=== PATIENT | male | born 1940 | race Caucasian/White ===

== ENCOUNTER 2017-01-22 08:30 | Emergency (ER) | payer MEDICARE, BC ==
--- NOTE | 2017-01-22 09:44 | EDM.PDOC ---
ED HPI GENERAL MEDICAL PROBLEM - General Chief Complaint: Syncope Stated Complaint: MEDICAL VIA [facility] Time Seen by Provider: 01/22/17 09:46 Source of Information: Reports: Patient, Family History Limitations: Reports: No Limitations - History of Present Illness INITIAL COMMENTS - FREE TEXT/NARRATIVE: pt arrived with marked vertigo. He was vomiting. He was so off balance he ended up on the floor and did not injure himself. Onset: Today, Other ( sudden onset) Duration: Hour(s):, Getting Worse Location: Reports: Other (pt had a sudden onset of marked vertigo. ) Associated Symptoms: Reports: Nausea/Vomiting, Other ( vertigo. ) - Related Data Allergies Allergy/AdvReac Type Severity Reaction Status Date / Time morphine AdvReac Vomiting Verified 03/19/16 15:04 Home Meds: Home Meds Aspirin 81 mg PO BEDTIME 03/18/16 [History] Clopidogrel [Plavix] 1 tab PO BEDTIME 03/18/16 [History] Fish Oil/[place]-3 Fatty Acids [Fish Oil 1,000 MG] 1 tab PO BID 03/18/16 [History] Garlic 1 tab PO DAILY 03/18/16 [History] Metoprolol Tartrate [Lopressor] 12.5 mg PO BID 03/18/16 [History] Nitroglycerin [IJP: Nitroglycerin] 1 tab SL ASDIRECTED 03/18/16 [History] Pantoprazole [ProTONIX] 40 mg PO DAILY 03/18/16 [History] Simvastatin [Simvastatin] 40 mg PO BEDTIME 03/18/16 [History] Tamsulosin [Flomax] 0.08 mg PO DAILY 03/18/16 [History] Finasteride [Finasteride] 5 mg PO DAILY 01/22/17 [History] Past Medical History HEENT History: Reports: Cataract, Impaired Vision Cardiovascular History: Reports: CAD, High Cholesterol, Hypertension, [place] Gastrointestinal History: Reports: GERD Genitourinary History: Reports: BPH - Past Surgical History Cardiovascular Surgical History: Reports: Carotid Stents, Coronary Artery Bypass , Other (See Below) Male Surgical History: Reports: Other (See Below) Social & Family History - Family History Cardiac: Reports: CAD Oncologic: Reports: Breast, Prostate - Tobacco Use Smoking Status *Q: Former Smoker Used Tobacco, but Quit: No - Caffeine Use Caffeine Use: Reports: Coffee Other Caffeine Use: 1 cup a day - Recreational Drug Use Recreational Drug Use: No ED ROS GENERAL - Review of Systems Review Of Systems: See Below Constitutional: Reports: No Symptoms, Other (pt did get sweaty. ) HEENT: Reports: No Symptoms Respiratory: Reports: No Symptoms Cardiovascular: Reports: Other (pt has no pain. 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 He also has a history of a enlarged prostate. 5 days ago he saw urology in [place] . He was placed on proscar 1 tab daily and his flomax was increased to .8. He had a very sudden onset of vertigo this am and he was so off balance he fell to the floor. He did not injure himself. He began to vomit and was still vomiting on arrival. He has had one previous episode of vertigo that was not nearly as severe as this. His bp was low when the ambulance arrived. Exam Limited By: No Limitations General Appearance: Alert, Anxious, Mild Distress Ears: Normal TMs, Other (pt did lean to th left when he was gotten up. ) Nose: Normal Inspection Throat/Mouth: Normal Inspection Head Exam: Atraumatic Vertigo: worsens with head to R Neck: Normal Inspection, Other (no evidence of carotid bruits) Respiratory/Chest: No Respiratory Distress Cardiovascular: Regular Rate, Rhythm GI/Abdominal: Soft, Non-Tender (Male) Exam: Deferred Rectal (Males) Exam: Deferred Neurological: Alert, Oriented x 3 Back Exam: Normal Inspection Extremities: Normal Inspection, Other (no sign of weakness) Psychiatric: Normal Affect Course - Vital Signs Last Recorded V/S: Last Vital Signs Temp 36.1 C 01/22/17 08:48 Pulse 65 01/22/17 14:26 Resp 16 01/22/17 08:48 BP 146/86 H 01/22/17 14:26 Pulse Ox 97 01/22/17 08:48 Orthostatic Blood Pressure [ 123/56 Standing] Orthostatic Blood Pressure [ 114/76 Sitting] Orthostatic Blood Pressure [ 131/79 Supine] - Orders/Labs/Meds Orders: Active Orders 24 hr Category Date Time Status Cardiac Monitoring [RC] .As Directed Care 01/22/17 08:44 Active Orthostatic Vital Signs [RC] ASDIRECTED Care 01/22/17 08:50 Active Labs: Laboratory Tests 01/22/17 01/22/17 01/22/17 Range/Units 08:55 08:55 12:51 WBC 5.6 (4.5-11.0) K/uL RBC 4.93 (4.30-5.90) M/uL Hgb 15.6 H (12.0-15.0) g/dL Hct 44.9 (40.0-54.0) % MCV 91 (80-98) fL MCH 32 H (27-31) pg MCHC 35 (32-36) % Plt Count 169 (150-400) K/uL Neut % (Auto) 66 (36-66) % Lymph % (Auto) 23 L (24-44) % Casey % (Auto) 7 H (2-6) % Eos % (Auto) 3 (2-4) % Baso % (Auto) 0 (0-1) % Sodium 141 (140-148) mmol/L Potassium 4.2 (3.6-5.2) mmol/L Chloride 106 (100-108) mmol/L Carbon Dioxide 26 (21-32) mmol/L Anion Gap 8.8 (5.0-14.0) mmol/L BUN 16 (7-18) mg/dL Creatinine 1.0 (0.8-1.3) mg/dL Est Cr Clr Drug Dosing 62.84 mL/min Estimated GFR (MDRD) > 60 (>60) Glucose 154 H (74-106) mg/dL Calcium 8.5 (8.5-10.1) mg/dL Total Bilirubin 1.5 H (0.2-1.0) mg/dL AST 16 (15-37) U/L ALT 25 (12-78) U/L Alkaline Phosphatase 41 L (46-116) U/L Troponin I (0.000-0.056) ng/mL Total Protein 6.8 (6.4-8.2) g/dL Albumin 3.5 (3.4-5.0) g/dL Globulin 3.3 (2.3-3.5) g/dL Albumin/Globulin Ratio 1.1 L (1.2-2.2) Urine Color Yellow Urine Appearance Clear Urine pH 6.0 (4.5-8.0) Ur Specific [place] 1.015 (1.008-1.030) Urine Protein Negative (NEGATIVE) mg/dL Urine Glucose (UA) Normal (NEGATIVE) mg/dL Urine Ketones Negative (NEGATIVE) mg/dL Urine Occult Blood Negative (NEGATIVE) Urine Nitrite Negative (NEGAITVE) Urine Bilirubin Negative (NEGATIVE) Urine Urobilinogen 1 (NORMAL) mg/dL Ur Leukocyte Esterase Negative (NEGATIVE) Urine RBC Not seen (0-5) Urine WBC Not seen (0-5) Ur Epithelial Cells Rare Amorphous Sediment Not seen Urine Bacteria Not seen Urine Mucus Moderate // Range/Units 15:54 WBC (4.5-11.0) K/uL RBC (4.30-5.90) M/uL Hgb (12.0-15.0) g/dL Hct (40.0-54.0) % MCV (80-98) fL MCH (27-31) pg MCHC (32-36) % Plt Count (150-400) K/uL Neut % (Auto) (36-66) % Lymph % (Auto) (24-44) % Casey % (Auto) (2-6) % Eos % (Auto) (2-4) % Baso % (Auto) (0-1) % Sodium (140-148) mmol/L Potassium (3.6-5.2) mmol/L Chloride (100-108) mmol/L Carbon Dioxide (21-32) mmol/L Anion Gap (5.0-14.0) mmol/L BUN (7-18) mg/dL Creatinine (0.8-1.3) mg/dL Est Cr Clr Drug Dosing mL/min Estimated GFR (MDRD) (>60) Glucose (74-106) mg/dL Calcium (8.5-10.1) mg/dL Total Bilirubin (0.2-1.0) mg/dL AST (15-37) U/L ALT (12-78) U/L Alkaline Phosphatase (46-116) U/L Troponin I < 0.017 (0.000-0.056) ng/mL Total Protein (6.4-8.2) g/dL Albumin (3.4-5.0) g/dL Globulin (2.3-3.5) g/dL Albumin/Globulin Ratio (1.2-2.2) Urine Color Urine Appearance Urine pH (4.5-8.0) Ur Specific [place] (1.008-1.030) Urine Protein (NEGATIVE) mg/dL Urine Glucose (UA) (NEGATIVE) mg/dL Urine Ketones (NEGATIVE) mg/dL Urine Occult Blood (NEGATIVE) Urine Nitrite (NEGAITVE) Urine Bilirubin (NEGATIVE) Urine Urobilinogen (NORMAL) mg/dL Ur Leukocyte Esterase (NEGATIVE) Urine RBC (0-5) Urine WBC (0-5) Ur Epithelial Cells Amorphous Sediment Urine Bacteria Urine Mucus Meds: Medications Discontinued Medications Generic Name Dose Route Start Last Admin Trade Name Freq PRN Reason Stop Dose Admin Sodium Chloride 1,000 mls @ 300 mls/hr 01/22/17 09:45 01/22/17 14:27 Normal Saline IV 300 mls/hr ASDIRECTED GABBY Administration Sodium Chloride 1,000 mls @ 300 mls/hr 01/22/17 14:15 Normal Saline IV ASDIRECTED GABBY Meclizine HCl 25 mg 01/22/17 09:45 01/22/17 10:27 Antivert PO 01/22/17 09:46 25 mg ONETIME ONE Administration Meclizine HCl 25 mg 01/22/17 12:30 01/22/17 12:39 Antivert PO 01/22/17 12:31 25 mg ONETIME ONE Administration Metoprolol Tartrate 12.5 mg 01/22/17 14:30 01/22/17 14:26 Lopressor PO 01/22/17 14:31 12.5 mg ONETIME ONE Administration Ondansetron HCl 4 mg 01/22/17 09:45 01/22/17 10:27 Zofran IVPUSH 01/22/17 09:46 4 mg ONETIME ONE Administration Pantoprazole Sodium 40 mg 01/22/17 14:30 01/22/17 14:29 Protonix PO 01/22/17 14:31 Not Given ONETIME ONE - Re-Assessments/Exams Free Text/Narrative Re-Assessment/Exam: 01/22/17 18:17 pt was found to have normal lab work.He had a normal ekg. His cat scan of the head was neg for acute findings. He was given fluids, 2 does of 25 mg antiver 2 -3 hours apart. He wa given zoforan 4 mg iv. he did not do further vomiting. He slowly did improve and walked with a walker well.he does have a walker at home. Departure - Departure Time of Disposition: 17:31 Disposition: Home, Self-Care 01 Condition: Fair Clinical Impression: Vertigo, Inner ear dysfunction, Hypotension - Discharge Information Instructions: Vertigo, [id number], Hypotension, [id number] Referrals: PCP,None [Primary Care Provider] - Forms: ED Department Discharge Care Plan Goals: encourage fluids, antivert 25 mg tid for vertigo, zoforan 4mg subling q6h prn for nausea, use a walker when ambulating at home, hold flomax--extra dose-- use .4 mg. finasteride will be held. In the next week may try to add the finastride can be added back but leave the flomax at .4. - My Orders Last 24 Hours: My Active Orders 01/22/17 08:44 Cardiac Monitoring [RC] .As Directed 01/22/17 08:50 Orthostatic Vital Signs [RC] ASDIRECTED - Assessment/Plan Last 24 Hours: My Active Orders 01/22/17 08:44 Cardiac Monitoring [RC] .As Directed 01/22/17 08:50 Orthostatic Vital Signs [RC] ASDIRECTED
[2017-01-22] MEDS ORDERED: Ondansetron 4 MG/2 ML SDV IVPUSH ONE (09:45)
[2017-01-22] MEDS ORDERED: Meclizine 25 MG Tab PO ONE ×2 (09:45→12:30)
[2017-01-22] MEDS: Sodium Chloride 0.9% 1,000 ML IV SCH ×2 (10:27→14:27)
--- NOTE | 2017-01-22 11:55 | CT ---
CT head without contrast. Total DLP 804. Indication: Vertigo. Findings: No mass effect or midline shift. No hemorrhage. No subacute territorial infarct. Vascular c alcifications. Mastoid air cells are clear. Calvarium intact. Minimal ethmoidal mucosal thickening an d right frontal sinus mucosal thickening. Impression: 1. No acute intracranial process by CT.
[2017-01-22] MEDS ORDERED: Metoprolol Succinate 25 MG Tab.ER PO ONE (14:11)
[2017-01-22] MEDS ORDERED: Sodium Chloride 0.9% 1,000 ML IV SCH (14:15)
[2017-01-22] MEDS: Pantoprazole 40 MG Tab.CR PO ONE ×2 (14:26→14:29)
[2017-01-22 14:27] VITALS: BP 146/86
[2017-01-22] MEDS ORDERED: Metoprolol Tartrate 25 MG Tab PO ONE (14:30)
== END 2017-01-22 18:19 | disposition home or self-care (01) ==
LOC: JP.ED 08:30
DX: R42 Dizziness and giddiness (principal); H83.2X9 Labyrinthine dysfunction, unspecified ear; I95.9 Hypotension, unspecified; I25.2 Old myocardial infarction; I10 Essential (primary) hypertension; I25.10 Atherosclerotic heart disease of native coronary artery without angina pectoris; E78.00 Pure hypercholesterolemia, unspecified; K21.9 Gastro-esophageal reflux disease without esophagitis; F03.90 Unspecified dementia, unspecified severity, without behavioral disturbance, psychotic disturbance, mood disturbance, and anxiety; Z95.1 Presence of aortocoronary bypass graft; Z79.82 Long term (current) use of aspirin; Z79.02 Long term (current) use of antithrombotics/antiplatelets; Z79.899 Other long term (current) drug therapy; Z88.5 Allergy status to narcotic agent
CPT/HCPCS: 36415; 70450; 80053; 81001; 84484; 85025; 96361; 96374; 99284; A9270; J2405; J7040

== ENCOUNTER 2019-07-20 22:09 | Emergency (ER) | payer MEDICARE, BC ==
[2019-07-20 22:24] VITALS: BP 140/66; PULSE 56
[2019-07-20] MEDS ORDERED: Aspirin 81 MG Tab.Chew PO ONE (22:43)
--- NOTE | 2019-07-20 22:46 | EDM.PDOC ---
ED HPI GENERAL MEDICAL PROBLEM - General Chief Complaint: Chest Pain Stated Complaint: CHEST PAIN Time Seen by Provider: 07/20/19 22:40 Source of Information: Reports: Patient, Family, RN Notes Reviewed History Limitations: Reports: No Limitations - History of Present Illness INITIAL COMMENTS - FREE TEXT/NARRATIVE: 78-year-old gentleman presents emergency department a complaint of chest pain, he has a known history of coronary artery disease last intervention was 3 years ago with stenting process. States he was at home today sitting in the chair sudden onset of chest pain was diaphoretic no shortness of breath no nausea pain was completely resolved with 2 nitro at this time he is chest pain-free - Related Data Allergies Allergy/AdvReac Type Severity Reaction Status Date / Time morphine AdvReac Vomiting Verified 03/19/16 15:04 Home Meds: Home Meds Aspirin 81 mg PO BEDTIME 03/18/16 [History] Clopidogrel [Plavix] 1 tab PO BEDTIME 03/18/16 [History] Fish Oil/[place]-3 Fatty Acids [Fish Oil 1,000 MG] 1 tab PO BID 03/18/16 [History] Garlic 1 tab PO DAILY 03/18/16 [History] Metoprolol Tartrate [Lopressor] 12.5 mg PO BID 03/18/16 [History] Nitroglycerin [IJP: Nitroglycerin] 1 tab SL ASDIRECTED 03/18/16 [History] Pantoprazole [ProTONIX] 40 mg PO DAILY 03/18/16 [History] Simvastatin 40 mg PO BEDTIME 03/18/16 [History] Tamsulosin [Flomax] 0.08 mg PO DAILY 03/18/16 [History] Finasteride 5 mg PO DAILY 01/22/17 [History] Past Medical History HEENT History: Reports: Cataract, Impaired Vision Cardiovascular History: Reports: CAD, High Cholesterol, Hypertension, CT Gastrointestinal History: Reports: GERD Genitourinary History: Reports: BPH - Infectious Disease History Infectious Disease History: Reports: Chicken Pox, Measles, Mumps - Past Surgical History Cardiovascular Surgical History: Reports: Carotid Stents, Coronary Artery Bypass , Other (See Below) Male Surgical History: Reports: Other (See Below) Social & Family History - Family History Cardiac: Reports: CAD Oncologic: Reports: Breast, Prostate - Tobacco Use Smoking Status *Q: Former Smoker Used Tobacco, but Quit: Yes Month/Year Tobacco Last Used: many years ago - Caffeine Use Caffeine Use: Reports: Coffee Other Caffeine Use: 1 cup a day - Recreational Drug Use Recreational Drug Use: No ED ROS GENERAL - Review of Systems Review Of Systems: See Below Constitutional: Reports: Diaphoresis HEENT: Reports: No Symptoms Respiratory: Denies: Shortness of Breath Cardiovascular: Reports: Chest Pain GI/Abdominal: Reports: No Symptoms ED EXAM, GENERAL - Physical Exam Exam: See Below Exam Limited By: No Limitations General Appearance: Alert, WD/WN, No Apparent Distress Respiratory/Chest: No Respiratory Distress, Lungs Clear, Normal Breath Sounds, No Accessory Muscle Use, Chest Non-Tender Cardiovascular: Regular Rate, Rhythm, No Murmur GI/Abdominal: Soft, Non-Tender Course - Vital Signs Last Recorded V/S: Last Vital Signs Temp 96.2 F L 07/20/19 22:23 Pulse 56 L 07/20/19 22:23 Resp 20 07/20/19 22:23 BP 140/66 07/20/19 22:23 Pulse Ox 97 07/20/19 22:23 - Orders/Labs/Meds Orders: Active Orders 24 hr Category Date Time Status Cardiac Monitoring [RC] .As Directed Care 07/20/19 22:43 Active EKG Documentation Completion [RC] ASDIRECTED Care 07/20/19 22:44 Active Chest 2V [CR] Stat Exams 07/20/19 22:44 Taken EKG 12 Lead [EK] Stat Ther 07/20/19 22:44 Ordered Labs: Laboratory Tests 07/20/19 07/20/19 07/21/19 Range/Units 23:00 23:00 01:30 WBC 5.9 (4.5-11.0) K/uL RBC 4.67 (4.30-5.90) M/uL Hgb 14.3 (12.0-15.0) g/dL Hct 44.3 (40.0-54.0) % MCV 95 (80-98) fL MCH 31 (27-31) pg MCHC 32 (32-36) % Plt Count 193 (150-400) K/uL Neut % (Auto) 61 (36-66) % Lymph % (Auto) 26 (24-44) % [place] % (Auto) 10 H (2-6) % Eos % (Auto) 3 (2-4) % Baso % (Auto) 0 (0-1) % Sodium 145 (140-148) mmol/L Potassium 4.1 (3.6-5.2) mmol/L Chloride 107 (100-108) mmol/L Carbon Dioxide 30 (21-32) mmol/L Anion Gap 8.4 (5.0-14.0) mmol/L BUN 19 H (7-18) mg/dL Creatinine 1.0 (0.8-1.3) mg/dL Est Cr Clr Drug Dosing 60.88 mL/min Estimated GFR (MDRD) > 60 (>60) Glucose 103 (74-106) mg/dL Calcium 8.6 (8.5-10.1) mg/dL Total Bilirubin 1.4 H (0.2-1.0) mg/dL AST 49 H D (15-37) U/L ALT 57 D (12-78) U/L Alkaline Phosphatase 51 (46-116) U/L Troponin I < 0.017 < 0.017 (0.000-0.056) ng/mL Total Protein 6.7 (6.4-8.2) g/dL Albumin 3.7 (3.4-5.0) g/dL Globulin 3.0 (2.3-3.5) g/dL Albumin/Globulin Ratio 1.2 (1.2-2.2) Meds: Medications Discontinued Medications Generic Name Dose Route Start Last Admin Trade Name Prashanthq PRN Reason Stop Dose Admin Aspirin 324 mg 07/20/19 22:43 07/20/19 23:00 Aspirin PO 07/20/19 22:44 324 mg ONETIME ONE Administration - Re-Assessments/Exams Free Text/Narrative Re-Assessment/Exam: 07/21/19 02:06 Heart score is 4 Departure - Departure Time of Disposition: 02:08 Disposition: Home, Self-Care 01 Condition: Fair Clinical Impression: Atypical chest pain Instructions: Nonspecific Chest Pain Referrals: Henrik George MD [Primary Care Provider] - Forms: ED Department Discharge Additional Instructions: Continue with your regular medications, please follow-up with your primary care in the next 3 to 5 days for reevaluation, call or return to the emergency department worsening of symptoms Sepsis Event Note - Focused Exam Vital Signs: Vital Signs Temp Pulse Resp BP Pulse Ox 07/20/19 22:23 96.2 F L 56 L 20 140/66 97 Date Exam was Performed: 07/21/19 Time Exam was Performed: 02:06 - My Orders Last 24 Hours: My Active Orders 07/20/19 22:43 Cardiac Monitoring [RC] .As Directed 07/20/19 22:44 EKG Documentation Completion [RC] ASDIRECTED Chest 2V [CR] Stat EKG 12 Lead [EK] Stat - Assessment/Plan Last 24 Hours: My Active Orders 07/20/19 22:43 Cardiac Monitoring [RC] .As Directed 07/20/19 22:44 EKG Documentation Completion [RC] ASDIRECTED Chest 2V [CR] Stat EKG 12 Lead [EK] Stat Plan: Assessment Acuity = acute Site and laterality = atypical chest pain Etiology = unknown Manifestations = none Location of injury = Home Lab values = CBC, CMP unremarkable troponin is negative x2 chest x-ray shows no acute process official read radiologist pending EKG demonstrates sinus rhythm with no signs of ST elevation or depression Plan He remained chest pain-free while in the ED for observation no arrhythmias were noted no etiology to his chest pain I have him follow-up with his primary care in the next 3 to 5 days for reevaluation consider stress testing, last angiogram was 3 years ago This note was dictated using [employer] voice recognition software please call with any questions on syntax or grammar.
--- NOTE | 2019-07-21 08:45 | CR ---
CHEST: 2 view CLINICAL HISTORY:Chest pain COMPARISON:None FINDINGS: The heart size, pulmonary vascularity and hilar structures are normal. No infiltrate effusion or pneumothorax is seen. There has been previous sternotomy. IMPRESSION: No acute cardiopulmonary process.
== END 2019-07-21 02:17 | disposition home or self-care (01) ==
LOC: JP.ED 22:09
DX: R07.89 Other chest pain (principal); I10 Essential (primary) hypertension; I25.2 Old myocardial infarction; Z88.5 Allergy status to narcotic agent; Z79.82 Long term (current) use of aspirin; Z79.899 Other long term (current) drug therapy; Z87.891 Personal history of nicotine dependence
CPT/HCPCS: 36415; 71046; 80053; 84484; 85025; 93005; 93010; 99284; 99285; A9270

== ENCOUNTER 2020-11-16 10:21 | Emergency (ER) | payer MEDICARE, BC ==
[2020-11-16] MEDS ORDERED: Bacitracin Oint 1 GM U/D Packet TOP ONE (10:39)
[2020-11-16 10:42] VITALS: BP 124/64; PULSE 63
--- NOTE | 2020-11-16 11:06 | EDM.PDOC ---
ED HPI GENERAL MEDICAL PROBLEM - General Chief Complaint: Skin Complaint Stated Complaint: CUT LEG WITH KNIFE Time Seen by Provider: 11/16/20 10:40 Source of Information: Reports: Patient, Family, Old Records, RN History Limitations: Reports: No Limitations - History of Present Illness INITIAL COMMENTS - FREE TEXT/NARRATIVE: 79 yo male here after accidently slipping with a razor knife this morning and cut just above his L knee. Here with his for eval. He is UTD on tetanus. 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[employer]ER: Reports: Other (see below) (none) - Related Data Allergies Allergy/AdvReac Type Severity Reaction Status Date / Time morphine AdvReac Vomiting Verified 03/19/16 15:04 Home Meds: Home Meds Aspirin 81 mg PO BEDTIME 03/18/16 [History] Clopidogrel [Plavix] 1 tab PO BEDTIME 03/18/16 [History] Fish Oil/[place]-3 Fatty Acids [Fish Oil 1,000 MG] 1 tab PO BID 03/18/16 [History] Garlic 1 tab PO DAILY 03/18/16 [History] Nitroglycerin [IJP: Nitroglycerin] 1 tab SL ASDIRECTED 03/18/16 [History] Simvastatin 40 mg PO BEDTIME 03/18/16 [History] Carbidopa/Levodopa/Entacapone [Carbidopa-Levodopa 100 mg-Enta] 1 tab PO TID 11/16/20 [History] Donepezil HCl [Aricept] 15 mg PO DAILY 11/16/20 [History] Memantine [Namenda] 10 mg PO BID 11/16/20 [History] Past Medical History HEENT History: Reports: Cataract, Impaired Vision Cardiovascular History: Reports: CAD, High Cholesterol, Hypertension, CT Gastrointestinal History: Reports: GERD Genitourinary History: Reports: BPH - Infectious Disease History Infectious Disease History: Reports: Chicken Pox, Measles, Mumps - Past Surgical History Cardiovascular Surgical History: Reports: Carotid Stents, Coronary Artery Bypass, Other (See Below) Other Cardiovascular Surgeries/Procedures: cabg x2 Male Surgical History: Reports: Other (See Below) Other Male Surgeries/Procedures: biopsy of prostate Social & Family History - Family History Cardiac: Reports: CAD Oncologic: Reports: Breast, Prostate - Tobacco Use Tobacco Use Status *Q: Never Tobacco User - Caffeine Use Caffeine Use: Reports: Coffee Other Caffeine Use: 1 cup a day - Recreational Drug Use Recreational Drug Use: No ED ROS GENERAL - Review of Systems Review Of Systems: See Below Constitutional: Reports: No Symptoms HEENT: Reports: No Symptoms Respiratory: Reports: No Symptoms Cardiovascular: Reports: No Symptoms GI/Abdominal: Reports: No Symptoms Skin: Reports: Wound (laceration just proximal to the L knee anteriorly) Neurological: Reports: No Symptoms. Denies: Numbness, Difficulty Walking, Weakness, Gait Disturbance Psychiatric: Reports: No Symptoms ED EXAM, SKIN/RASH Exam: See Below Exam Limited By: No Limitations General Appearance: Alert, WD/WN, No Apparent Distress Eye Exam: Bilateral Eye: Normal Inspection Ears: Normal External Exam, Normal Canal, Hearing Grossly Normal Nose: Normal Inspection, No Blood Throat/Mouth: Normal Lips, Normal Oropharynx, Normal Voice, No Airway Compromise Head: Atraumatic, Normocephalic Respiratory/Chest: No Respiratory Distress Cardiovascular: Regular Rate, Rhythm Extremities: Normal Inspection, Non-Tender, No Pedal Edema. No: Pedal Edema Neurological: Alert, Oriented, CN II-XII Intact, Normal Cognition, No Motor/Sensory Deficits Skin: Warm, Dry, Normal Color, No Rash, Wound/Incision (horizontal linear lac just above the L knee anteriorly.). No: Intact Location, Skin: Lower Extremity, Left Characteristics: Linear Associated features: No: Warmth, Tenderness, Induration, Lymphangitis ED SKIN PROCEDURES - Laceration/Wound Repair Left Anterior Distal Thigh Appearance: Subcutaneous, Linear, Clean Distal NVT: Neuro & Vascular Intact, No Tendon Injury Anesthetic Type: Local Local Anesthesia - Lidocaine (Xylocaine): 1% with EPI Local Anesthetic Volume: Other (8 ml) Skin Prep: Saline Saline Irrigation (cc's): 60 Exploration/Debridement/Repair: Wound Explored, In a Bloodless Field, Explored to Base Closed with: Sutures Lac/Wound length In cm: 4 Suture Size: 5-0 # of Sutures: 6 Suture Type: Nylon, Interrupted, Mattress Drain Placement: No Sterile Dressing Applied: Nurse Tetanus Status Addressed: Yes Complications: No Course - Vital Signs Last Recorded V/S: Last Vital Signs Temp 36.6 C 06/23/21 10:41 Pulse 63 11/16/20 10:41 Resp 16 11/16/20 10:41 BP 124/64 11/16/20 10:41 Pulse Ox 97 11/16/20 10:41 - Orders/Labs/Meds Meds: Medications Discontinued Medications Generic Name Dose Route Start Last Admin Trade Name Constantino PRN Reason Stop Dose Admin Bacitracin 1 dose 11/16/20 10:39 Bacitracin Oint 1 Gm U/D Packet TOP 11/16/20 10:40 ONETIME ONE Departure - Departure Time of Disposition: 11:15 Disposition: Home, Self-Care 01 Condition: Good Clinical Impression: Laceration of left leg Qualifiers: Encounter type: initial encounter Qualified Code(s): S81.812A - Laceration without foreign body, left lower leg, initial encounter - Discharge Information *PRESCRIPTION DRUG MONITORING PROGRAM REVIEWED*: Not Applicable *COPY OF PRESCRIPTION DRUG MONITORING REPORT IN PATIENT NOAH: Not Applicable Instructions: Laceration Care, Adult, [id number] Referrals: PCP,None [Primary Care Provider] - Forms: ED Department Discharge Additional Instructions: Clean wound twice daily with soap and water. Dry. Apply antibiotic ointment and a new dressing. Stitches out in 9-10 days. Recheck for signs of infection. Acetaminophen as needed for pain relief. Sepsis Event Note (ED) - Evaluation Sepsis Screening Result: No Definite Risk - Focused Exam Vital Signs: Vital Signs Temp Pulse Resp BP Pulse Ox 11/16/20 10:41 36.6 C 63 16 124/64 97
== END 2020-11-16 11:19 | disposition home or self-care (01) ==
LOC: JP.ED 10:21
DX: S71.112A Laceration without foreign body, left thigh, initial encounter (principal); I25.10 Atherosclerotic heart disease of native coronary artery without angina pectoris; E78.00 Pure hypercholesterolemia, unspecified; I10 Essential (primary) hypertension; I25.2 Old myocardial infarction; Z79.02 Long term (current) use of antithrombotics/antiplatelets; Z79.899 Other long term (current) drug therapy; Z88.5 Allergy status to narcotic agent; Z79.82 Long term (current) use of aspirin; W26.0XXA Contact with knife, initial encounter
CPT/HCPCS: 12002; 99282-25

== ENCOUNTER 2021-06-29 13:32 | Emergency (ER) | payer MEDICARE, BC ==
[2021-06-29 14:14] VITALS: PULSE 65
[2021-06-29 15:14] VITALS: BP 137/65
== END 2021-06-29 15:20 | disposition home or self-care (01) ==
LOC: JP.ED 13:32
DX: R07.2 Precordial pain (principal); I25.10 Atherosclerotic heart disease of native coronary artery without angina pectoris; E78.00 Pure hypercholesterolemia, unspecified; I10 Essential (primary) hypertension; I25.2 Old myocardial infarction; N40.0 Benign prostatic hyperplasia without lower urinary tract symptoms; Z95.1 Presence of aortocoronary bypass graft; Z88.5 Allergy status to narcotic agent; Z79.82 Long term (current) use of aspirin; Z79.02 Long term (current) use of antithrombotics/antiplatelets; Z79.899 Other long term (current) drug therapy
CPT/HCPCS: 36415; 84484; 93010; 99284; 99285-25